=== PATIENT | female | born 1980 | race Caucasian/White ===

== ENCOUNTER 2021-10-04 22:50 | Inpatient (IN) ==
[2021-10-04 23:29] LABS: Basophils # 0.1 K/mcL (0.0-0.2); Basophils % 0.7 %; Eosinophils # 0.2 K/mcL (0.0-0.6); Eosinophils % 1.8 %; Hematocrit 39.1 % (35.3-44.9); Hemoglobin 12.9 g/dL (11.5-15.4); Immature Granulocytes % 0.2 % (0-4); Lymphocytes # 2.6 K/mcL (0.6-4.6); Lymphocytes % 27.1 %; Mean Corpuscular Hemoglobin 34.1 pg (28.0-33.3); Mean Corpuscular Volume 103.4 fL (83.0-100.0); Mean Platelet Volume 10.5 fL (9.4-12.4); Monocytes # 0.8 K/mcL (0.0-1.3); Monocytes % 8.3 %; Neutrophils # 5.9 K/mcL (1.6-8.9); Platelet Count 377 K/mcL (140-400); Red Blood Count 3.78 M/mcL (3.82-4.97); Segmented Neutrophils % 61.9 %; White Blood Count 9.6 K/mcL (4.3-11.1)
[2021-10-04] MEDS ORDERED: Isovue-370 500 ML BOTTLE IVP ONE (23:35)
[2021-10-04 23:56] LABS: BUN/Creatinine Ratio 18 (6-26); Blood Urea Nitrogen 15 mg/dL (6-20); Carbon Dioxide 20 mEq/L (23-29); Chloride 107 mEq/L (98-107); Glucose 144 mg/dL (70-105); Osmolality,Calculated 289 (280-300); Potassium 3.6 mEq/L (3.5-5.1); Sodium 138 mEq/L (136-145); Troponin I 0.03 ng/mL (< 0.04); eGFR For African Americans > 60 (> 60); eGFR For Non-African Americans > 60 (> 60)
[2021-10-05 00:50] LABS: Influenza A PCR Negative (Negative); Influenza B PCR Negative (Negative); Resp. Syncytial Virus PCR Negative (Negative)
[2021-10-05 01:01] LABS: SARS-CoV-2 by PCR (In House) Negative (Negative)
[2021-10-05] MEDS ORDERED: Furosemide 20 MG/2 ML VIAL IVP ONE (02:05)
[2021-10-05] MEDS ORDERED: Perflutren Lipid Microsphere 1.3 ML in 0.9 % Sodium Chloride 8.7 ML IVP PRN (02:43)
[2021-10-05] MEDS ORDERED: Acetaminophen 325 MG TABLET PO PRN (02:45)
[2021-10-05] MEDS ORDERED: Naloxone 0.4 MG/ML INJ IVP PRN (02:45)
[2021-10-05] MEDS ORDERED: Ondansetron 4 MG/2 ML VIAL IVP PRN (02:45)
[2021-10-05 04:22] LABS: Amphetamine Screen,Urine Negative ng/mL (Cutoff=1000); Barbiturate Screen,Urine Negative ng/mL (Cutoff=200); Benzodiazepines Screen,Urine Negative ng/mL (Cutoff=200); Cannabinoid Screen,Urine Negative ng/mL (Cutoff = 50); Cocaine Screen,Urine Negative ng/mL (Cutoff= 300); Opiate Screen,Urine Negative ng/mL (Cutoff=300); Phencyclidine Screen,Urine Negative ng/mL (Cutoff=25)
[2021-10-05 04:30] LABS: Adenovirus Not Detected (Not Detect); Bordetella Pertussis Not Detected (Not Detect); Chlamydophila pneumoniae Not Detected (Not Detect); Coronavirus 229E Not Detected (Not Detect); Coronavirus HKU1 Not Detected (Not Detect); Coronavirus NL63 Not Detected (Not Detect); Coronavirus OC43 Not Detected (Not Detect); Human Metapneumovirus Not Detected (Not Detect); Human Rhinovirus/Enterovirus Not Detected (Not Detect); Influenza A Subtype 2009 H1 Not Detected (Not Detect); Influenza B Not Detected (Not Detect); Mycoplasma pneumoniae Not Detected (Not Detect); Parainfluenza Virus 1 Not Detected (Not Detect); Parainfluenza Virus 2 Not Detected (Not Detect); Parainfluenza Virus 3 Not Detected (Not Detect); Parainfluenza Virus 4 Not Detected (Not Detect); Respiratory Syncytial Virus Not Detected (Not Detect); SARS-CoV-2 Not Detected (Not Detect)
[2021-10-05 07:09] LABS: Hematocrit 37.2 % (35.3-44.9); Hemoglobin 12.4 g/dL (11.5-15.4); Mean Corpuscular HGB Conc 33.3 g/dL (31.6-35.5); Mean Corpuscular Hemoglobin 34.3 pg (28.0-33.3); Mean Corpuscular Volume 102.8 fL (83.0-100.0); Mean Platelet Volume 10.7 fL (9.4-12.4); Platelet Count 323 K/mcL (140-400); Red Blood Count 3.62 M/mcL (3.82-4.97); White Blood Count 8.4 K/mcL (4.3-11.1)
[2021-10-05 07:28] LABS: BUN/Creatinine Ratio 18 (6-26); Blood Urea Nitrogen 12 mg/dL (6-20); Calcium 8.7 mg/dL (8.6-10.3); Carbon Dioxide 20 mEq/L (23-29); Chloride 108 mEq/L (98-107); Glucose 108 mg/dL (70-105); Osmolality,Calculated 286 (280-300); Potassium 3.5 mEq/L (3.5-5.1); Sodium 138 mEq/L (136-145); eGFR For African Americans > 60 (> 60); eGFR For Non-African Americans > 60 (> 60)
[2021-10-05 07:29] LABS: Troponin I 0.03 ng/mL (< 0.04)
[2021-10-05] MEDS ORDERED: Furosemide 20 MG/2 ML VIAL IVP SCH ×2 (09:00)
[2021-10-05] MEDS: *HR* Heparin 5,000 UNIT/ML VIAL SQ SCH (18:18)
[2021-10-05] MEDS: Furosemide 20 MG/2 ML VIAL IVP SCH (18:18)
[2021-10-05] MEDS: Melatonin 3 MG TABLET PO PRN (21:36)
[2021-10-06 01:13] LABS: Hematocrit 39.8 % (35.3-44.9); Hemoglobin 13.6 g/dL (11.5-15.4); Mean Corpuscular HGB Conc 34.2 g/dL (31.6-35.5); Mean Corpuscular Hemoglobin 34.6 pg (28.0-33.3); Mean Corpuscular Volume 101.3 fL (83.0-100.0); Mean Platelet Volume 10.5 fL (9.4-12.4); Platelet Count 330 K/mcL (140-400); Red Blood Count 3.93 M/mcL (3.82-4.97); White Blood Count 7.8 K/mcL (4.3-11.1)
[2021-10-06 01:35] LABS: BUN/Creatinine Ratio 16 (6-26); Blood Urea Nitrogen 12 mg/dL (6-20); Calcium 8.8 mg/dL (8.6-10.3); Carbon Dioxide 22 mEq/L (23-29); Chloride 105 mEq/L (98-107); Glucose 109 mg/dL (70-105); Osmolality,Calculated 282 (280-300); Sodium 136 mEq/L (136-145); eGFR For African Americans > 60 (> 60); eGFR For Non-African Americans > 60 (> 60)
[2021-10-06] MEDS: *HR* Heparin 5,000 UNIT/ML VIAL SQ SCH ×2 (05:52→17:50)
[2021-10-06] MEDS: Furosemide 20 MG/2 ML VIAL IVP SCH ×2 (08:18→17:50)
[2021-10-06] MEDS ORDERED: Spironolactone 12.5 MG TABLET PO SCH (09:00)
[2021-10-06] MEDS ORDERED: Metoprolol XL (24 HR) Succ 25 MG TAB.ER.24H PO SCH (09:00)
[2021-10-06] MEDS ORDERED: Metoprolol XL (24 HR) Succ 50 MG TAB.ER.24H PO ONE ×2 (21:00)
[2021-10-06] MEDS: Melatonin 3 MG TABLET PO PRN (21:21)
[2021-10-07] MEDS: *HR* Heparin 5,000 UNIT/ML VIAL SQ SCH (05:07)
[2021-10-07] MEDS ORDERED: Isovue-370 500 ML BOTTLE IVP ONE (08:27)
[2021-10-07 09:19] LABS: BUN/Creatinine Ratio 17 (6-26); Blood Urea Nitrogen 13 mg/dL (6-20); Calcium 9.2 mg/dL (8.6-10.3); Carbon Dioxide 21 mEq/L (23-29); Chloride 107 mEq/L (98-107); Glucose 90 mg/dL (70-105); Osmolality,Calculated 282 (280-300); Potassium 4.1 mEq/L (3.5-5.1); Sodium 136 mEq/L (136-145); eGFR For African Americans > 60 (> 60); eGFR For Non-African Americans > 60 (> 60)
[2021-10-07] MEDS: Furosemide 20 MG/2 ML VIAL IVP SCH (09:27)
[2021-10-07] MEDS ORDERED: *HR* Metoprolol 5 MG/5 ML VIAL IVP PRN (11:15)
[2021-10-07] MEDS ORDERED: 0.9 % Sodium Chloride 1,000 ML IVC SCH (11:15)
[2021-10-07] MEDS ORDERED: Nitroglycerin 0.4 MG TAB.SUBL SL PRN (11:15)
[2021-10-07 16:28] VITALS: BP 111/72; PULSE 58; TEMP 97.5; O2SAT 100
[2021-10-08] MEDS ORDERED: Furosemide 20 MG TABLET PO SCH (09:00)
[2021-10-08] MEDS ORDERED: Metoprolol XL (24 HR) Succ 25 MG TAB.ER.24H PO SCH (09:00)
== END 2021-10-07 16:46 | disposition home or self-care (01) | DRG 291 ==
LOC: EMEROOARM 22:50 → 2ANU 22:50
PROVIDERS: ADMIT Student in an Organized Health Care Education/Training Program; ATTEND Student in an Organized Health Care Education/Training Program